=== PATIENT | female | born 1985 | race Caucasian/White ===

== ENCOUNTER 2020-02-22 13:12 | Outpatient (CLI) | payer OTHER, SELFPAY ==
[2020-02-23 19:47] LABS: SARS-CoV-2 RNA PCR Negative
== END 2020-02-22 13:13 | disposition home or self-care (01) ==
PROVIDERS: PCP Physician Assistant; Visit Provider Physician Assistant
DX: Z20.828 Contact with and (suspected) exposure to other viral communicable diseases (principal)
CPT/HCPCS: 87635; C9803; U0003

== ENCOUNTER 2020-07-13 11:03 | Outpatient (CLI) | payer OTHER, SELFPAY ==
--- NOTE | ~2020-07-13 | US_ITS ---
EXAMINATION: US soft tissue head and neck DATE: 07/13/2020 11:24 INDICATION: Left neck mass. TECHNIQUE: Multiple grayscale and Doppler ultrasound images of the neck were obtained. COMPARISON: None FINDINGS: There is an 8 mm hypoechoic subepidermal mass in the left neck with small tract to the skin surface, likely a sebaceous cyst. No internal vascular flow. IMPRESSION: 1. 8 mm subepidermal mass in left neck, likely a sebaceous cyst. Reviewed, dictated and finalized at location A.
== END 2020-07-13 11:04 | disposition home or self-care (01) ==
PROVIDERS: PCP Physician Assistant; Visit Provider Nurse Practitioner
DX: M79.9 Soft tissue disorder, unspecified (principal); R22.1 Localized swelling, mass and lump, neck
CPT/HCPCS: 76536

== ENCOUNTER 2021-01-27 16:00 | Outpatient (CLI) | payer OTHER, SELFPAY ==
[2021-01-27 17:05] LABS: SARS-CoV-2 RNA PCR Negative (Negative)
== END 2021-01-27 16:01 | disposition home or self-care (01) ==
PROVIDERS: PCP Physician Assistant; Visit Provider Physician Assistant
DX: Z03.89 Encounter for observation for other suspected diseases and conditions ruled out (principal); Z20.822 Contact with and (suspected) exposure to COVID-19
CPT/HCPCS: C9803; U0003; U0005

== ENCOUNTER 2021-04-17 14:23 | Outpatient (CLI) | payer OTHER, SELFPAY ==
[2021-04-17 16:17] LABS: SARS-CoV-2 RNA PCR Positive (Negative)
== END 2021-04-17 14:24 | disposition home or self-care (01) ==
LOC: CHSLAB 14:24
PROVIDERS: PCP Physician Assistant; Visit Provider Physician Assistant
DX: U07.1 COVID-19 (principal); B34.9 Viral infection, unspecified
CPT/HCPCS: C9803; U0003; U0005